=== PATIENT | male | born 1940 | race Caucasian/White ===

== ENCOUNTER 2017-09-28 20:19 | Emergency (ER) | payer MEDICARE, OTHER ==
--- NOTE | 2017-09-28 20:52 | EDM.PDOC ---
ED HPI GENERAL MEDICAL PROBLEM - General Chief Complaint: Genitourinary Problem Stated Complaint: poss plughed cath Time Seen by Provider: 09/28/17 20:52 Source of Information: Reports: Patient History Limitations: Reports: No Limitations - History of Present Illness INITIAL COMMENTS - FREE TEXT/NARRATIVE: Patient is a 77-year-old male who believes his catheter is plugged. Patient was evaluated this past Wednesday diagnosed with urosepsis,acute kidney injury, and nstemi. Patient was transferred to [place] for further evaluation and treatment. During his hospital visit patient underwent multiple cardiac testing and had a Garcia catheter placed. He was discharged home with garcia in place with leg bag. As of today started experiencing increasing pressure to his lower abdomen with some leaking around the urethra meatus. He is questioning if the catheter is plugged. Denies any chest pain, fever, hematuria, shortness of breath, n/v, or any additional complaints. bladder Pain Score (Numeric/FACES): 2 - Related Data Allergies Allergy/AdvReac Type Severity Reaction Status Date / Time No Known Allergies Allergy Verified 09/28/17 20:30 Home Meds: Home Meds Tamsulosin [Flomax] 0.4 mg PO DAILY 09/24/17 [History] Aspirin 81 mg PO DAILY 09/28/17 [History] Ferrous Sulfate [Iron] 325 mg PO DAILY 09/28/17 [History] Levofloxacin 1 tab PO DAILY 09/29/17 [History] Metoprolol Tartrate 12.5 mg PO BID 09/29/17 [History] Past Medical History HEENT History: Reports: Hard of Hearing, Impaired Vision Cardiovascular History: Reports: [place], Other (See Below) Other Cardiovascular History: stress test Fevruary 2018 Genitourinary History: Reports: Prostate Disorder - Past Surgical History GI Surgical History: Reports: Appendectomy, Cholecystectomy Social & Family History - Family History Family Medical History: Noncontributory - Tobacco Use Smoking Status *Q: Never Smoker - Caffeine Use Caffeine Use: Reports: Coffee - Recreational Drug Use Recreational Drug Use: No ED ROS GENERAL - Review of Systems Review Of Systems: ROS reveals no pertinent complaints other than HPI. ED EXAM, GI/ABD - Physical Exam Exam: See Below Exam Limited By: No Limitations General Appearance: Alert, WD/WN, No Apparent Distress Ears: Hearing Grossly Normal Nose: Normal Inspection Throat/Mouth: Normal Voice, No Airway Compromise Neck: Normal Inspection, Supple Respiratory/Chest: No Respiratory Distress, Normal Breath Sounds, No Accessory Muscle Use Cardiovascular: Normal Peripheral Pulses, Regular Rate, Rhythm GI/Abdominal Exam: Normal Bowel Sounds, Soft, No Organomegaly, No Distention, Tender (Suprapubic region.) (Male) Exam: Other (Garcia in place with no blood coming from the urethra meatus.) Neurological: Alert, Oriented, CN II-XII Intact, Normal Cognition Psychiatric: Normal Affect, Normal Mood Skin Exam: Warm, Dry Course - Vital Signs Last Recorded V/S: Last Vital Signs Temp 97.4 F 09/28/17 20:27 Pulse 87 09/28/17 20:27 Resp 20 09/28/17 20:27 BP 149/70 H 09/28/17 20: Pulse Ox 99 09/28/17 20:27 - Re-Assessments/Exams Free Text/Narrative Re-Assessment/Exam: Nursing staff found the Garcia was not draining into the leg bag. It appears where the Garcia enters into the leg bag there was a strap occluding the opending thus not allowing it to drain. This will be changed out with a leg bag in the E.D. 09/28/17 21:01 per nursing staff patient had accidentally pulled the catheter out. It was only in the urethra approximately 2 inches. The catheter was pulled out and patient had some bleeding from the urethral meatus. This will be changed out. Patient is on baby aspirin daily. 09/28/17 22:16 Per nursing staff Garcia is draining freely. Bleeding and pain have subsided. Will discharge patient home with instructions as documented. Departure - Departure Time of Disposition: 22:17 Disposition: Home, Self-Care 01 Condition: Good Clinical Impression: Dislodged Garcia catheter Qualifiers: Encounter type: initial encounter Qualified Code(s): T83.021A - Displacement of indwelling urethral catheter, initial encounter Hematuria Qualifiers: Hematuria type: gross Qualified Code(s): R31.0 - Gross hematuria - Discharge Information Instructions: Garcia Catheter Care, Adult Referrals: Tin Newby MD [Primary Care Provider] - Forms: ED Department Discharge Additional Instructions: Do not pull on catheter. By pulling on a you will dislodge it causing trauma to your urethra thus bleeding. Keep appointment with urologist as scheduled. Return to the ED if you develop any further issues with the Garcia catheter.
== END 2017-09-28 22:25 | disposition home or self-care (01) ==
LOC: JD.ED 20:19
DX: T83.021A Displacement of indwelling urethral catheter, initial encounter (principal); R31.0 Gross hematuria; I25.2 Old myocardial infarction; Z79.82 Long term (current) use of aspirin; Z79.899 Other long term (current) drug therapy
CPT/HCPCS: 51702; 99283; 99283-25

== ENCOUNTER 2017-09-29 05:14 | Emergency (ER) | payer MEDICARE, OTHER ==
--- NOTE | 2017-09-29 06:13 | EDM.PDOC ---
ED HPI GENERAL MEDICAL PROBLEM - General Chief Complaint: Genitourinary Problem Stated Complaint: CATH PAINS Time Seen by Provider: 09/29/17 05:59 Source of Information: Reports: Patient, Old Records History Limitations: Reports: Other (The patient is a poor historian) - History of Present Illness INITIAL COMMENTS - FREE TEXT/NARRATIVE: The patient was in in this ED 09/24/2017, and found to have a non-STEMI, acute renal failure, and a UTI. He was transferred to [place], and during his stay, received a Barrett catheter. He was seen in this ED yesterday, , for dysfunctional Barrett. It was discovered that the patient had pulled on the Barrett , such that the balloon was only 2 inches from the meatus of the penis. The Barrett was replaced, and the patient discharged home. He now returns stating that around midnight he found bleeding around the Barrett, and the Barrett again nonfunctional. He states that he developed lower abdominal pressure. The patient is not a good historian. He is not able to tell me why he has Barrett catheter, with whom he is to follow-up, or when. - Related Data Allergies Allergy/AdvReac Type Severity Reaction Status Date / Time No Known Allergies Allergy Verified 09/28/17 20:30 Home Meds: Home Meds Tamsulosin [Flomax] 0.4 mg PO DAILY 09/24/17 [History] Aspirin 81 mg PO DAILY 09/28/17 [History] Ferrous Sulfate [Iron] 325 mg PO DAILY 09/28/17 [History] Levofloxacin 1 tab PO DAILY 09/29/17 [History] Metoprolol Tartrate 12.5 mg PO BID 09/29/17 [History] Past Medical History HEENT History: Reports: Hard of Hearing, Impaired Vision Cardiovascular History: Reports: [place], Other (See Below) Other Cardiovascular History: stress test 2017 Genitourinary History: Reports: Prostate Disorder - Past Surgical History GI Surgical History: Reports: Appendectomy, Cholecystectomy Social & Family History - Family History Family Medical History: Noncontributory - Tobacco Use Smoking Status *Q: Never Smoker - Caffeine Use Caffeine Use: Reports: Coffee - Recreational Drug Use Recreational Drug Use: No ED ROS GENERAL - Review of Systems Review Of Systems: ROS reveals no pertinent complaints other than HPI. ED EXAM, RENAL/ - Physical Exam Exam: See Below (Examined after Barrett had been repositioned) Exam Limited By: No Limitations General Appearance: Alert, WD/WN, No Apparent Distress GI/Abdominal: Normal Bowel Sounds, Soft, Non-Tender, No Organomegaly, No Distention, No Abnormal Bruit, No Mass Course - Vital Signs Last Recorded V/S: Last Vital Signs Temp 35.9 C 09/29/17 05:20 Pulse 95 09/29/17 05:20 Resp 18 09/29/17 05:20 BP Pulse Ox 100 09/29/17 05:20 - Re-Assessments/Exams Free Text/Narrative Re-Assessment/Exam: 09/29/17 06:05 The patient's Barrett was dislodged - it appears that the patient has been tugging on the catheter. The nurse dropped the balloon, advanced the Barrett, then re-inflated the balloon, and it is now working well. He will be discharged home. Departure - Departure Time of Disposition: 06:05 Disposition: Home, Self-Care 01 Condition: Good Clinical Impression: Dislodged Barrett catheter Qualifiers: Encounter type: initial encounter Qualified Code(s): T83.021A - Displacement of indwelling urethral catheter, initial encounter - Discharge Information Instructions: Barrett Catheter Care, Adult Forms: ED Department Discharge Additional Instructions: You were seen in the emergency room for bleeding around your Barrett, and failure of the Barrett to drain your bladder. The catheter was found to have been pulled on, causing it to not work well. Be sure you do not pull on your Barrett catheter. Follow-up with your Urologist as scheduled. If any other problems, please do not hesitate to return to the ER.
== END 2017-09-29 06:20 | disposition home or self-care (01) ==
LOC: JD.ED 05:14
DX: T83.021A Displacement of indwelling urethral catheter, initial encounter (principal); Z79.899 Other long term (current) drug therapy; Z79.82 Long term (current) use of aspirin
CPT/HCPCS: 99283; 99284

== ENCOUNTER 2017-09-29 14:20 | Emergency (ER) | payer MEDICARE, OTHER ==
--- NOTE | 2017-09-29 15:57 | EDM.PDOC ---
ED HPI GENERAL MEDICAL PROBLEM - General Chief Complaint: Genitourinary Problem Stated Complaint: CATHETER PROBLEM Time Seen by Provider: 09/29/17 15:33 Source of Information: Reports: Patient History Limitations: Reports: No Limitations - History of Present Illness INITIAL COMMENTS - FREE TEXT/NARRATIVE: Patient is a 77 y/o male who presents to the E.D. with concerns of urine leaking around the tip of his penis. Patient was evaluated last night for suprapubic abd pain. WIth examination patient had been pulling the catheter thus dislodging. He did have some bleeding from the urethra meatus that has since resolved. New garcia catheter had to be placed since patient almost pulled the catheter out. He has appt with Dr. Donaldson in one month. Patient has history of AK, kidney disease, and BPH/Urinary retention. - Related Data Allergies Allergy/AdvReac Type Severity Reaction Status Date / Time No Known Allergies Allergy Verified 09/28/17 20:30 Home Meds: Home Meds Tamsulosin [Flomax] 0.4 mg PO DAILY 09/24/17 [History] Aspirin 81 mg PO DAILY 09/28/17 [History] Ferrous Sulfate [Iron] 325 mg PO DAILY 09/28/17 [History] Levofloxacin 1 tab PO DAILY 09/29/17 [History] Metoprolol Tartrate 12.5 mg PO BID 09/29/17 [History] Past Medical History HEENT History: Reports: Hard of Hearing, Impaired Vision Cardiovascular History: Reports: [place], Other (See Below) Other Cardiovascular History: stress test [id number] Genitourinary History: Reports: Prostate Disorder - Past Surgical History GI Surgical History: Reports: Appendectomy, Cholecystectomy Social & Family History - Family History Family Medical History: Noncontributory - Tobacco Use Smoking Status *Q: Never Smoker - Caffeine Use Caffeine Use: Reports: Coffee, Soda - Recreational Drug Use Recreational Drug Use: No ED ROS GENERAL - Review of Systems Review Of Systems: ROS reveals no pertinent complaints other than HPI. ED EXAM, RENAL/ - Physical Exam Exam: See Below Exam Limited By: No Limitations General Appearance: Alert, WD/WN, No Apparent Distress Ears: Hearing Grossly Normal Nose: Normal Inspection Throat/Mouth: Normal Voice, No Airway Compromise Neck: Normal Inspection, Supple Respiratory/Chest: No Respiratory Distress, Lungs Clear, Normal Breath Sounds, No Accessory Muscle Use Cardiovascular: Normal Peripheral Pulses, Regular Rate, Rhythm GI/Abdominal: Normal Bowel Sounds, Soft, Non-Tender, No Organomegaly, No Distention (Male) Exam: Other (Garcia in place. Mild leaking of urine around the tip of the penis. No blood within the leg bag. Draining normally. No swelling noted.) Course - Vital Signs Last Recorded V/S: Last Vital Signs Temp 96.5 F 09/29/17 14:36 Pulse 73 09/29/17 14:36 Resp 20 09/29/17 14:36 BP 134/78 09/29/17 14:36 Pulse Ox 99 09/29/17 14:36 - Re-Assessments/Exams Free Text/Narrative Re-Assessment/Exam: Garcia in place. Draining as normal. No blood present. Some faint leakage around the urethral meatus of urine. Patient is requesting have the Garcia removed. Nursing staff contacted the urologist office. Patient has an appt with Dr. Donaldson in one month. Will arrange appointment with his PCP for this week. 09/29/17 16:[address] Newby for this coming September 30 at 1445. Departure - Departure Time of Disposition: 16:40 Disposition: Home, Self-Care 01 Condition: Good Clinical Impression: Indwelling Garcia catheter present Garcia catheter problem Qualifiers: Encounter type: initial encounter Qualified Code(s): T83.9XXA - Unspecified complication of genitourinary prosthetic device, implant and graft, initial encounter - Discharge Information Instructions: Garcia Catheter Care, Adult Referrals: Tin Newby MD [Primary Care Provider] - Forms: ED Department Discharge Additional Instructions: Appt. with Dr. Newby is scheduled for this coming WednesdaySeptember 30 @ 1426. Please do not pull on the garcia. Urine may leak from the urethra meatus. Keep appointment with urologist scheduled for one month from now. Return to the ED if you develop increased bleeding, suprapubic abdominal pain, fever, chills, or any additional new or worsening symptoms.
== END 2017-09-29 17:00 | disposition home or self-care (01) ==
LOC: JD.ED 14:20
DX: T83.031A Leakage of indwelling urethral catheter, initial encounter (principal); Z79.82 Long term (current) use of aspirin; Z79.899 Other long term (current) drug therapy
CPT/HCPCS: 99283